=== PATIENT | female | born 1950 | race Caucasian/White ===

== ENCOUNTER 2017-09-29 11:06 | Emergency (ER) | payer OTHER ==
[2017-09-29] MEDS ORDERED: Aspirin 81 mg CHEW TAB* 81 MG TAB.CHEW PO ONE (11:24)
--- NOTE | 2017-09-29 11:27 | ED ---
Upper Extremity Pain - HPI Summary HPI Summary: This is scribe Jeannie Angelo documenting for attending Chirag Engel MD. 66 year old F presenting to [facility] complains of bilateral wrist pain, with left wrist pain worse than right wrist pain, since slipping and falling in [place] 30 minutes ago. Patient landed on her tailbone and had extended both arms behind her. The patient rates the pain 7/10 in severity. Symptoms aggravated by nothing. Symptoms alleviated by nothing. She denies tail bone pain. - History of Current Complaint Chief Complaint: EDExtremityUpper Stated Complaint: FALL Time Seen by Provider: 09/29/17 11:20 Hx Obtained From: Patient Mechanism Of Injury: Other - slipping and falling in [place] Onset/Duration: Started Minutes Ago - 30 minutes, Still Present Timing: Constant Pain Location: Wrist - bilateral Aggravating Factor(s): Nothing Alleviating Factor(s): Nothing Associated Signs & Symptoms: Positive: Negative - tailbone pain - Allergies/Home Medications Allergies/Adverse Reactions: Allergies Allergy/AdvReac Type Severity Reaction Status Date / Time Penicillins Allergy Hives Verified 09/29/17 11:16 Sulfa (Sulfonamide Allergy Hives Verified 09/29/17 11:16 Antibiotics) PMH/Surg Hx/FS Hx/Imm Hx Previously Healthy: Yes Endocrine/Hematology History: Denies: Hx Diabetes Cardiovascular History: Denies: Hx Hypertension Respiratory History: Denies: Hx Asthma, Hx Chronic Obstructive Pulmonary Disease (COPD) Sensory History: Denies: Hx Deafness EENT History: Denies: Hx Deafness - Surgical History Surgery Procedure, Year, and Place: n/a Infectious Disease History: No Infectious Disease History: Denies: Traveled Outside the [place] in Last 30 Days - Family History Known Family History: Positive: Other - reviewed and non-contributory - Social History Hx Substance Use: No Substance Use Type: Reports: None Hx Tobacco Use: No Smoking Status (MU): Never Smoked Tobacco Review of Systems Negative: Fever Musculoskeletal: Negative - tailbone pain Positive: Other - bilateral wrist pain, with left wrist pain worse than right wrist pain All Other Systems Reviewed And Are Negative: Yes Physical Exam - Summary Physical Exam Summary: VITAL SIGNS: Reviewed. GENERAL: Patient is a well-developed and nourished female who is lying comfortable in the stretcher. Patient is not in any acute respiratory distress. HEAD AND FACE: No signs of trauma. No ecchymosis, hematomas or skull depressions. No sinus tenderness. EYES: PERRLA, EOMI x 2, No injected conjunctiva, no nystagmus. EARS: Hearing grossly intact. Ear canals and tympanic membranes are within normal limits. MOUTH: Oropharynx within normal limits. NECK: Supple, trachea is midline, no adenopathy, no JVD, no carotid bruit, no c- spine tenderness, neck with full ROM. CHEST: Symmetric, no tenderness at palpation LUNGS: Clear to auscultation bilaterally. No wheezing or crackles. CVS: Regular rate and rhythm, S1 and S2 present, no murmurs or gallops appreciated. ABDOMEN: Soft, non-tender. No signs of distention. No rebound no guarding, and no masses palpated. Bowel sounds are normal. EXTREMITIES: Left wrist deformity with good ROM, capillary refill and pulses. Right wrist has tenderness upon palpation, no deformity, neurovascular in tact. NEURO: Alert and oriented x 3. No acute neurological deficits. Speech is normal and follows commands. SKIN: Dry and warm Triage Information Reviewed: Yes Vital Signs On Initial Exam: Initial Vitals Temp Pulse Resp BP Pulse Ox 98.7 F 78 18 126/79 100 09/29/17 11:17 09/29/17 11:17 09/29/17 11:17 09/29/17 11:17 09/29/17 11:17 Vital Signs Reviewed: Yes Diagnostics - Vital Signs Vital Signs Temp Pulse Resp BP Pulse Ox 09/29/17 11:17 98.7 F 78 18 126/79 100 - Laboratory Lab Statement: Any lab studies that have been ordered have been reviewed, and results considered in the medical decision making process. - Radiology Wrist Radiology Interpretation Completed By: Radiologist - BILATERAL WRIST FRACTURES. ED physician has reviewed this report. Re-Evaluation - Re-Evaluation First Eval Re-Evaluation Time: 12:51 Comment: splint put on patient Course/Dx - Course Assessment/Plan: Patient is a 66-year-old female who presents to the emergency department with a chief complaint of bilateral wrist pain. The patient sustained a fall and landed on both of her wrists. She denies any back pain denies any headache or neck pain. She denies any trauma to the head or neck. X -ray results showed that the patient has a bilateral wrist fracture. I discussed the case with Dr. Schneider the orthopedic surgeon and he recommends to place the patient in the wrist is splinted and discharged her to his office for further assessment and workup. I discussed the plan with the patient and she agrees. The patient's daughter and granddaughter will be taking the patient to the orthopedic surgeon's office. Patient is hemodynamically stable alert and oriented 3. - Diagnoses Differential Diagnosis/HQI/PQRI: Positive: Bursitis, Contusion, Fracture (Closed ), Strain, Sprain Provider Diagnoses: Wrist fracture, bilateral - Physician Notifications Discussed Care of Patient With: aLnden Parks Time Discussed With Above Provider: 12:34 Instructed by Provider To: Other - Dr. Parks, orthopedics, recommends putting a posterior splint on the patient and discharging her to his office now. Discharge - Sign-Out/Discharge Documenting (check all that apply): Patient Departure - Discharge - Discharge Plan Condition: Stable Disposition: HOME Patient Education Materials: Wrist Fracture in Adults (ED) Referrals: No Primary Care Phys,NOPCP [Primary Care Provider] - Landen Parks MD [Medical Doctor] - 09/29/17 Additional Instructions: Follow up with Dr. Parks, orthopedics, in his office now. Return to the Emergency Department for new or worsening symptoms. - Billing Disposition and Condition Condition: STABLE Disposition: Home
--- NOTE | 2017-09-29 12:11 | RAD ---
INDICATION: Fall. Wrist pain COMPARISON: None TECHNIQUE: AP, lateral, and oblique views of each wrist were obtained. FINDINGS: Left wrist: There is a comminuted mildly displaced intra-articular distal radial fracture. There is also a fracture from the ulnar styloid. There is soft tissue swelling with mild deformity. Right wrist:. There is a comminuted and mildly displaced intra-articular distal radial fracture. There are no other fractures. There is soft tissue swelling with mild deformity. IMPRESSION: BILATERAL WRIST FRACTURES
[2017-09-29] MEDS ORDERED: Ibuprofen TAB* 600 MG PO ONE (13:01)
[2017-09-29 13:12] VITALS: BP 133/77
== END 2017-09-29 13:11 | disposition home or self-care (01) ==
LOC: ED 11:06
DX: S52.572A Other intraarticular fracture of lower end of left radius, initial encounter for closed fracture (principal); S52.571A Other intraarticular fracture of lower end of right radius, initial encounter for closed fracture; W01.0XXA Fall on same level from slipping, tripping and stumbling without subsequent striking against object, initial encounter; Y92.89 Other specified places as the place of occurrence of the external cause; Z88.0 Allergy status to penicillin; Z88.2 Allergy status to sulfonamides
CPT/HCPCS: 99282; A9270-GY